=== PATIENT | female | born 1990 | race African-American/Black ===

== ENCOUNTER 2022-10-03 08:42 | Emergency (ER) | payer MEDICAID, SELFPAY ==
[2022-10-03 09:01] VITALS: BP 141/111; PULSE 88; RESP 18; TEMP 36.9; O2SAT 98; BMI 48.4
--- NOTE | 2022-10-03 09:25 | W.ED.GENADLT ---
HPI - General Adult General: Chief complaint: General Medical Stated complaint: low back pain, syncope, n/v Time Seen by Provider: 10/03/22 09:02 History of Present Illness: Patient is a 32-year-old female comes to the ED with multiple complaints. Her main complaint today is that she has bilateral lower back pain, but most of the back pain is on the left side. Back pain started approximately a week ago. She rates her back pain an 8 out of 10. Pain worsens with any movement of torso. Patient also reports having increased urinary frequency, dysuria and hematuria. She also reports having nausea and vomiting that she has been dealing with for the past 6 months. She states that certain foods make her symptoms worse. She has had 3 inconclusive test and says that her last menstrual period only lasted for 2 days. Patient also states that she lives off the grid in a cabin at home that does not have any AC or electricity. She states that she sweats a lot and feels like she cannot stay hydrated. She reports having multiple episodes of heat exhaustion in the last year and has had a couple this year. Patient does not have a primary care physician and has not seen anybody within the last 6 months since symptoms of nausea and vomiting with certain foods started. Associated symptoms: Deny chest pain, dyspnea, headache(s), nausea, rash, palpitations or vomiting Review of Systems Const: Denies: fever(s), chills or fatigue Eyes: Denies: change in vision or eye discomfort ENMT: Denies: throat pain, odynophagia, nasal discharge or nasal congestion Card: Denies: chest pain, palpitations, edema, swelling of feet/ankles, dyspnea on exertion or orthopnea Resp: Denies: dyspnea, productive cough or non-productive cough GI: Denies: abdominal pain, nausea, vomiting, diarrhea, constipation or hematochezia : Reports: dysuria, urinary frequency and hematuria; Denies: flank pain, vaginal bleeding or vaginal discharge Musc: Reports: back pain; Denies: neck pain or extremity swelling Skin/Breast: Denies: rash or new lesions Neuro: Denies: headache(s), numbness in extremities or weakness in extremities PFS ED PFSH: Medical History (Updated 10/03/22 @ 12:37 by ALBA Hall) No pertinent family history Surgical History (Updated 10/03/22 @ 09:31 by ALBA Hall) History of Physical Exam Const: COMMON NORMALS: no acute distress, patient oriented x3, healthy appearing and alert HENMT: COMMON NORMALS: normocephalic HEAD & SCALP: normocephalic MOUTH: Normal oral and palatal mucosa present THROAT: posterior oropharynx normal and uvula midline Neck/C-Spine: COMMON NORMALS: supple GENERAL: Yes normal visual inspection Resp: COMMON NORMALS: normal respiratory effort, No retractions, No use of accessory muscles and clear to auscultation bilaterally AUSCULTATION: clear to auscultation bilaterally Cardio: COMMON NORMALS: regular rate, regular rhythm, S1 normal heart sound present, S2 normal heart sound present, No gallops present (Cardio), No clicks present (Cardio), No murmurs present (Cardio) and Peripheral pulses 2+ throughout RATE: regular rate RHYTHM: regular rhythm HEART SOUNDS: S1 normal heart sound present and S2 normal heart sound present PERIPHERAL PULSES: Peripheral pulses 2+ throughout GI: COMMON NORMALS: Normal to inspection, nondistended, normoactive bowel sounds present, Soft to palpation, non-tender and no masses PALPATION: Yes Soft to palpation : BLADDER/KIDNEY EXAM: Yes CVA tenderness on the left Back/Pelvis: GENERAL BACK: Yes CVA tenderness LUMBAR SPINE/LOWER BACK: No lumbar spinal tenderness and Yes paraspinal muscle tenderness Lumbar paraspinal muscle tenderness: bilateral Bilateral lumbar paraspinal muscle tenderness: L4 and L5 Extremity: COMMON NORMALS: normal to inspection Neuro: COMMON NORMALS: patient oriented x3 SENSORIUM/ORIENTATION: Yes alert GAIT: Yes Normal gait present Skin: GENERAL SKIN EXAM: dry skin Course ED course: I told patient about lab results and her positive test. Patient got emotional and says they have been trying for 12 years to get again and even went to fertility specialists and they were unable to help them. Patient is happy about the use of being . Denies any vaginal bleeding. Vital Signs: Vital signs: Vital Signs Temperature 98.5 F 10/03/22 09:01 Pulse Rate 78 10/03/22 11:45 Respiratory Rate 16 10/03/22 11:45 Blood Pressure 106/88 10/03/22 11:45 Pulse Oximetry 98 10/03/22 11:45 Oxygen Delivery Me thod Room Air 10/03/22 09:01 MDM - General Adult Medical Decision Making Patient is a 32-year-old female comes to the ED with multiple complaints. Her main complaint today is that she has bilateral lower back pain, but most of the back pain is on the left side. Back pain started approximately a week ago. She rates her back pain an 8 out of 10. Pain worsens with any movement of torso. Patient also reports having increased urinary frequency, dysuria and hematuria. She also reports having nausea and vomiting that she has been dealing with for the past 6 months. She states that certain foods make her symptoms worse. She has had 3 inconclusive test and says that her last menstrual period only lasted for 2 days. Patient also states that she lives off the grid in a cabin at home that does not have any AC or electricity. She states that she sweats a lot and feels like she cannot stay hydrated. She reports having multiple episodes of heat exhaustion in the last year and has had a couple this year. Patient does not have a primary care physician and has not seen anybody within the last 6 months since symptoms of nausea and vomiting with certain foods started. Vitals are stable. Patient appears nontoxic and in no acute distress or pain. She has some left CVA tenderness and bilateral L4 and L5 lumbar paraspinal muscle tenderness. Rest of exam is benign. CBC, CMP, TSH are unremarkable. UA shows no signs of UTI, no white blood cells, red blood cells or bacteria. hCG was positive and hCG quant was 87,186. EKG showed no acute findings. OB ultrasound showed single intrauterine with a gestation of 11 weeks and 3 days and normal cardiac activity. Patient was given 1 L of IV fluids and all of her symptoms resolved. She was excited about currently being . She was stable for discharge home and told to follow-up with her OB as soon as possible to have her first OB appointment. Return to ED precautions given. Patient understood and agreed with plan. Lab Data I reviewed the patient's lab results. 10/03/22 09:12 10/03/22 09:12 Radiology Impressions Obstetrics Ultrasound 10/03/22 10:40 IMPRESSION: 1. Single intrauterine gestation of 11 weeks 3 days and EDC of 04/21/2023. 2. Normal cardiac activity. 3. No free fluid or adnexal masses. Laboratory Results WBC 7.5 10^3/uL (4.0-10.0) 10/03/22 09:12 RBC 4.88 10^6/uL (4.1-5.3) 10/03/22 09:12 Hgb 13.0 g/dL (11.5-15.3) 10/03/22 09:12 Hct 40.9 % (37.0-47.0) 10/03/22 09:12 MCV 83.8 fl (81-99) 10/03/22 09:12 MCH 26.6 pg (28.0-34.0) L 10/03/22 09:12 MCHC 31.8 g/dL (30.0-36.0) 10/03/22 09:12 RDW 14.5 % (12.1-15.1) 10/03/22 09:12 Plt Count 251 10^3/cmm (130-400) 10/03/22 09:12 MPV 10.5 fL (7.4-10.4) H 10/03/22 09:12 Neut % (Auto) 65.3 % 10/03/22 09:12 Lymph % (Auto) 24.3 % 10/03/22 09:12 [place] % (Auto) 6.4 % 10/03/22 09:12 Eos % (Auto) 3.4 % 10/03/22 09:12 Baso % (Auto) 0.3 % 10/03/22 09:12 Neut # (Auto) 4.87 10^3/uL (1.8-7.7) 10/03/22 09:12 Lymph # (Auto) 1.8 10^3/uL (0.8-4.8) 10/03/22 09:12 [place] # (Auto) 0.5 10^3/uL (0.2-0.9) 10/03/22 09:12 Eos # (Auto) 0.3 10^3/uL (0.0-0.8) 10/03/22 09:12 Baso # (Auto) 0.0 10^3/uL (0.0-0.1) 10/03/22 09:12 Nucleated RBC % (auto) 0 % 10/03/22 09:12 Nucleated RBCs # 0.0 /100WBC 10/03/22 09:12 Sodium 136 mmol/L (136-145) 10/03/22 09:12 Potassium 4.2 mmol/L (3.5-5.1) 10/03/22 09:12 Chloride 102 mmol/L (98-107) 10/03/22 09:12 Carbon Dioxide 22 mmol/L (22-29) 10/03/22 09:12 Anion Gap 16.2 (5-19) 10/03/22 09:12 BUN 6 mg/dL (6-20) 10/03/22 09:12 Creatinine 0.6 mg/dL (0.5-0.9) 10/03/22 09:12 GFR Calculation 140.2 mL/min (90-130) H 10/03/22 09:12 Glucose 98 mg/dL (65-115) 10/03/22 09:12 Calculated Osmolality 280 mOsm/kg (285-295) L 10/03/22 09:12 Calcium 9.6 mg/dL (8.5-10.5) 10/03/22 09:12 Total Bilirubin 0.3 mg/dL (0.15-1.2) 10/03/22 09:12 AST 11 U/L (0-32) 10/03/22 09:12 ALT 8 U/L (0-33) 10/03/22 09:12 Alkaline Phosphatase 72 U/L (35-105) 10/03/22 09:12 Total Protein 7.1 g/dL (6.6-8.7) 10/03/22 09:12 Albumin 4.2 g/dL (3.5-5.2) 10/03/22 09:12 Globulin 2.9 g/dL (1.3-4.6) 10/03/22 09:12 TSH 1.58 uIU/mL (0.27-4.20) 10/03/22 09:12 HCG, Qual Positive (Negative) H 10/03/22 09:12 Ser , Semi-Qnt 13343.00 mIU/mL 10/03/22 09:12 Urine Color Yellow (Yellow) 10/03/22 12:04 Urine Appearance Clear (CLEAR) 10/03/22 12:04 Urine pH 7 (5-7) 10/03/22 12:04 Ur Specific [place] 1.010 (1.005-1.030) 10/03/22 12:04 Urine Protein Neg (Negative) 10/03/22 12:04 Urine Glucose (UA) Norm (Normal) 10/03/22 12:04 Urine Ketones 1+ (Negative) H 10/03/22 12:04 Urine Blood Neg (Negative) 10/03/22 12:04 Urine Nitrate Negative (Negative) 10/03/22 12:04 Urine Bilirubin Neg (Negative) 10/03/22 12:04 Urine Urobilinogen Norm mg/dL (Negative) 10/03/22 12:04 Ur Leukocyte Esterase Negative (Negative) 10/03/22 12:04 EKG Data EKG 1: EKG interpretation date: 10/03/22 Interpretation: Sinus rhythm, 72 bpm, no ST segment elevation or depression seen. Computer generated interpretation: Obstetrics Ultrasound 10/03/22 10:40 IMPRESSION: 1. Single intrauterine gestation of 11 weeks 3 days and EDC of 04/21/2023. 2. Normal cardiac activity. 3. No free fluid or adnexal masses. Discharge Plan Discharge Patient Disposition: Home Clinical Impression: Currently Qualifiers: Weeks of gestation: 11 weeks Qualified Code(s): Z3A.11 - 11 weeks gestation of Condition: Stable Prescriptions: New Reglan 10 mg tablet 10 mg PO Q6H PRN (Reason: nausea and vomiting) Qty: 20 0RF No Action Jt Back and Body 500-32.5 mg Tablet 2 tab PO EVERY OTHER DAY PRN (Reason: Pain) Discharge Orders: Discharge ED (Routine); Ordered 10/03/22 Ordered By: Mikhail Garcia Discharge Diet: Regular Discharge Activity: Increase activity as tolerated Patient Instructions: at 11 to 14 Weeks (ED) Activity Restrictions/Additional Instructions: Follow-up with medical provider as directed in the next 7 to 10 days for reevaluation. Make sure you drink plenty fluids and stay hydrated. Take medications as prescribed. Return to the ER or your medical provider if condition worsens. Please read and understand discharge instructions. Thank you for choosing [facility] for your healthcare needs today. Please realize this is an emergency room and that we are providing you with a medical screening exam and this may not be complete and all inclusive of all the testing and or work up that you may need to determine your ailment or severity of your illness. It is very important that you follow up as instructed or that you return to the Emergency Department should you have concerns or if your condition changes or worsens in any way. Coding Level of Care Code ED Sales Clerk Supervisor for Keshia Patel
[2022-10-03 09:34] LABS: Basophils % 0.3 %; Eosinophils # 0.3 10^3/uL (0.0-0.8); Eosinophils % 3.4 %; Hematocrit 40.9 % (37.0-47.0); Lymphocytes # 1.8 10^3/uL (0.8-4.8); Lymphocytes % 24.3 %; Mean Corpuscular HGB Conc 31.8 g/dL (30.0-36.0); Mean Corpuscular Hemoglobin 26.6 pg (28.0-34.0); Mean Corpuscular Volume 83.8 fl (81-99); Mean Platelet Volume 10.5 fL (7.4-10.4); Monocytes # 0.5 10^3/uL (0.2-0.9); Monocytes % 6.4 %; Neutrophils # 4.87 10^3/uL (1.8-7.7); Neutrophils % 65.3 %; Nucleated Red Blood Cells % 0 %; Platelet Count 251 10^3/cmm (130-400); Red Blood Count 4.88 10^6/uL (4.1-5.3); Red Cell Distribution Width 14.5 % (12.1-15.1); White Blood Count 7.5 10^3/uL (4.0-10.0)
--- NOTE | 2022-10-03 09:34 | ECG_ITS ---
[facility] Test Date: 2022-10-03 Pat Name: Flor Ochoa Department: Room: Gender: Female Adjunct Business Instructor: : 1990 Requested By: Mikhail Garcia Order Number: [id number] Helder MD: Mo Hope M.D. Measurements Intervals [place] Rate: 72 P: 31 MN: 144 QRS: 73 QRSD: 89 T: 48 QT: 381 QTc: 418 Interpretive Statements SINUS RHYTHM WITH SINUS ARRHYTHMIA No previous ECG available for comparison Electronically Signed On 10-03-2022 11:42:20 CDT by Mo Hope M.D. [id number]
[2022-10-03 09:40] LABS: HCG, Serum Qual Positive (Negative)
--- NOTE | 2022-10-03 09:41 | PC.PHAR ---
pt states she is suppose to be taking bp meds and inhalers but states she never took them states that was years ago they were prescribed pt states she doesnt like to take medications-
[2022-10-03] MEDS: sodium chloride 0.9% 1,000 ML 999 ML IV (09:57)
[2022-10-03 10:04] LABS: Alanine Aminotransferase 8 U/L (0-33); Albumin Level 4.2 g/dL (3.5-5.2); Alkaline Phosphatase 72 U/L (35-105); Anion Gap 16.2 (5-19); Aspartate Amino Transferase 11 U/L (0-32); Blood Urea Nitrogen 6 mg/dL (6-20); Calcium 9.6 mg/dL (8.5-10.5); Carbon Dioxide 22 mmol/L (22-29); Chloride 102 mmol/L (98-107); Globulin 2.9 g/dL (1.3-4.6); Glomerular Filtration Rate 140.2 mL/min (90-130); Glucose 98 mg/dL (65-115); Osmolality Calculated 280 mOsm/kg (285-295); Potassium 4.2 mmol/L (3.5-5.1); Sodium 136 mmol/L (136-145); Thyroid Stimulating Hormone 1.58 uIU/mL (0.27-4.20); Total Bilirubin 0.3 mg/dL (0.15-1.2); Total Protein 7.1 g/dL (6.6-8.7)
--- NOTE | 2022-10-03 10:40 | US_ITS ---
WS: [id number] EARLY OBSTETRICAL ULTRASOUND (<14 WEEKS). HISTORY: unknown gestation, abd cramping, no bleeding COMPARISON: None available. Single intrauterine gestational sac is identified. Cardiac activity at 157 BPM. Mcbride-rump length dayana sures 4.6 cm which corresponds to a gestation of 11w3d. Normal-appearing yolk sac and amnion demonstr ated. No subchorionic hemorrhage. No free fluid. Normal size ovaries with no mass. US/US OB limited [id number] IMPRESSION: 1. Single intrauterine gestation of 11 weeks 3 days and EDC of 04/21/2023. 2. Normal cardiac activity. 3. No free fluid or adnexal masses.
[2022-10-03 11:45] VITALS: BP 106/88; PULSE 78; RESP 16; O2SAT 98
[2022-10-03 12:08] LABS: Add Urine Microscopic? NO; Charge for UA Resulting for Rev
[2022-10-03 12:28] LABS: Blood Urine Neg (Negative); Glucose Urine UA Norm (Normal); Ketones Urine 1+ (Negative); Nitrate Urine Negative (Negative); Protein Urine Neg (Negative); Urine Appearance Clear (CLEAR); Urine Color Yellow (Yellow); pH Urine 7 (5-7)
[2022-10-03 12:29] LABS: Bilirubin Urine Neg (Negative); Leukocyte Esterase Urine Negative (Negative); Urobilinogen Urine Norm (Negative)
== END 2022-10-03 12:54 | disposition home or self-care (01) ==
PROVIDERS: Emergency Provider Physician Assistant
DX: O26.891 Other specified pregnancy related conditions, first trimester (principal); M54.50 Low back pain, unspecified; Z3A.11 11 weeks gestation of pregnancy
CPT/HCPCS: 76815; 80053; 81003; 84443; 84702; 84703; 85025; 93005; 96360; 96361; 99285; J7030

== ENCOUNTER 2022-11-20 10:02 | Emergency (ER) | payer BC, MEDICAID, SELFPAY ==
[2022-11-20 10:13] VITALS: BP 134/72; PULSE 103; RESP 16; TEMP 36.6; O2SAT 97; BMI 52.0
--- NOTE | 2022-11-20 10:51 | US_ITS ---
WS: [id number] ULTRASOUND ABDOMEN LIMITED CLINICAL INFORMATION: periumbilical pain suspicious for hernia COMPARISON: None. FINDINGS: Ultrasound area of concern near the umbilicus. Small fat-containing umbilical hernia with omentum. No visualized herniated or obstructed bowel. No free fluid. IMPRESSION: Small fat-containing umbilical hernia with omentum. No visualized herniated or obstructed bowel.
--- NOTE | 2022-11-20 10:51 | US_ITS ---
WS: [id number] EARLY OBSTETRICAL ULTRASOUND (<14 WEEKS). HISTORY: 18 weeks gestation lack of mvmt and pelvic cramping COMPARISON: 10/03/2022 Very limited evaluation of the intrauterine gestation. heart rate at 160 bpm. There is a normal amount of amniotic fluid. Placenta is anterior to fund al. No abruption is identified. Cervix is closed measuring 5.1 cm in length. Gestational age estimate d at 18 weeks and 6 days. IMPRESSION: 1. Normal cardiac activity. 2. Normal amniotic fluid. 3. No placental abruption identified
[2022-11-20 11:09] LABS: Basophils % 0.2 %; Eosinophils # 0.2 10^3/uL (0.0-0.8); Eosinophils % 2.6 %; Hematocrit 39.1 % (36-47); Lymphocytes % 22.4 %; Mean Corpuscular Hemoglobin 27.3 pg (27-33); Mean Corpuscular Volume 82.8 fl (85-98); Mean Platelet Volume 10.5 fL (7.4-10.4); Monocytes # 0.6 10^3/uL (0.2-0.9); Monocytes % 6.6 %; Neutrophils % 68.1 %; Nucleated Red Blood Cells % 0 %; Platelet Count 254 10^3/cmm (157-399); Red Blood Count 4.72 10^6/uL (3.85-5.65); Red Cell Distribution Width 14.3 % (12.1-15.1); White Blood Count 8.96 10^3/uL (3.29-11.43)
[2022-11-20 11:30] LABS: Alanine Aminotransferase 12 U/L (0-33); Albumin Level 3.8 g/dL (3.5-5.2); Alkaline Phosphatase 59 U/L (35-105); Anion Gap 13.1 (5-19); Aspartate Amino Transferase 16 U/L (0-32); Blood Urea Nitrogen 7 mg/dL (6-20); Calcium 9.1 mg/dL (8.5-10.5); Carbon Dioxide 24 mmol/L (22-29); Chloride 101 mmol/L (98-107); Globulin 3.5 g/dL (1.3-4.6); Glucose 120 mg/dL (65-115); Lipase 29 U/L (13-60); Osmolality Calculated 277 mOsm/kg (285-295); Potassium 4.1 mmol/L (3.5-5.1); Sodium 134 mmol/L (136-145); Total Bilirubin 0.3 mg/dL (0.15-1.2); Total Protein 7.3 g/dL (6.6-8.7)
--- NOTE | 2022-11-20 13:01 | ED_ITS ---
HPI - Abdominal Pain General: Chief Complaint: Abdominal Pain Stated Complaint: 18 wks preg/abd pain Time Seen by Provider: 11/20/22 10:19 History of Present Illness: Patient is in today for abdominal pain. She reports that she is 18 weeks . She reports that she has a hernia around her bellybutton and also down by her previous scar that is very painful to her. She reports that she has tried 12 years to get this baby and now she is very nervous that the growing baby is causing the hernias to worsen. She relates that she had a very traumatic and delivery with her first child. She reports that she was on bedrest from 19 weeks until 9 months . She reports that her first child had a stroke in utero and 2 strokes postdelivery with significant complications. She states that she has not felt movement with this baby in the past 2 days where she had been feeling routinely. She denies any fever, chills. She states that she has had significant/extreme nausea and vomiting with this and has really struggled to stay hydrated. She states that for the past 2 days she has had extreme abdominal pain and now feeling uterine c ramping. She denies any vaginal bleeding or discharge. Associated Symptoms: Reports nausea and vomiting; Denies chills, constipation, diarrhea, dysuria and fever(s) Review of Systems Const: Denies: fever(s) or chills Card: Denies: chest pain or palpitations Resp: Denies: dyspnea, productive cough or non-productive cough GI: Reports: abdominal pain, nausea and vomiting; Denies: diarrhea or constipation : Denies: flank pain, difficulty voiding, dysuria or urinary urgency [facility] ED PFSH: Medical History No pertinent family history Surgical History History of Physical Exam Const: COMMON NORMALS: no acute distress, patient oriented x3 and alert Neck/C-Spine: COMMON NORMALS: no JVD Resp: COMMON NORMALS: normal respiratory effort, No use of accessory muscles and clear to auscultation bilaterally AUSCULTATION: clear to auscultation bilaterally Cardio: COMMON NORMALS: no JVD, regular rate, regular rhythm, S1 normal heart sound present and S2 normal heart sound present RATE: regular rate RHYTHM: regular rhythm HEART SOUNDS: S1 normal heart sound present and S2 normal heart sound present GI: COMMON NORMALS: Soft to palpation INSPECTION: Yes central obesity AUSCULTATION: Yes normoactive bowel sounds PALPATION: Yes Soft to palpation and Yes Tenderness to palpation present (GI) Details: LLQ, LUQ and other (Suprapubic and periumbilical) : COMMON NORMALS: Yes no CVA tenderness BLADDER/KIDNEY EXAM: Yes no CVA t enderness Back/Pelvis: COMMON NORMALS: no CVA tenderness Neuro: COMMON NORMALS: patient oriented x3 SENSORIUM/ORIENTATION: Yes alert Course Vital Signs: Vital signs: Vital Signs Temperature 97.8 F 11/20/22 10:13 Pulse Rate 103 H 11/20/22 10:13 Respiratory Rate 16 11/20/22 10:13 Blood Pressure 134/72 11/20/22 10:13 Pulse Oximetry 97 11/20/22 10:13 Oxygen Delivery Me thod Room Air 11/20/22 10:13 MDM - Abdominal Pain Medical Decision Making Consider renal stone, N[place] Perez, threatened , hernia, urinary tract infection Labs do not show any significant elevation in white blood cell count to indicate infection. Patient was unable to urinate and did not want to leave a urine sample at this time stating that she does not have any urinary symptoms and she is feeling better now that she had the ultrasound. Patient's biggest concern was the hernia and the fact that she had not felt movement. Ultrasound showed fetus measuring 18 weeks 6 days with normal cardiac activity and Hall Perez contractions. Ultrasound abdomen shows fat-containing umbilical hernia without strangulation. Advised the patient that I will discharge her to home to keep her follow-up with POACHER WRINGER OPERATOR next week as already scheduled. She can discuss the hernia and with POACHER WRINGER OPERATOR at that time. Encouraged the patient to stay well-hydrated and rest. Gave her a small refill of the metoclop ramide as patient reports that the only way she is able to keep fluids down. Advised her to return to the ER as needed for any new or worsening symptoms. Lab Data 11/20/22 11:00 11/20/22 11:00 Labs/Radiology: Laboratory Results WBC 8.96 10^3/uL (3.29-11.43) 11/20/22 11:00 RBC 4.72 10^6/uL (3.85-5.65) 11/20/22 11:00 Hgb 12.90 g/dL (11.27-16.99) 11/20/22 11:00 Hct 39.1 % (36-47) 11/20/22 11:00 MCV 82.8 fl (85-98) L 11/20/22 11:00 MCH 27.3 pg (27-33) 11/20/22 11:00 MCHC 33.0 g/dL (30-55) 11/20/22 11:00 RDW 14.3 % (12.1-15.1) 11/20/22 11:00 Plt Count 254 10^3/cmm (157-399) 11/20/22 11:00 MPV 10.5 fL (7.4-10.4) H 11/20/22 11:00 Neut % (Auto) 68.1 % 11/20/22 11:00 Lymph % (Auto) 22.4 % 11/20/22 11:00 [place] % (Auto) 6.6 % 11/20/22 11:00 Eos % (Auto) 2.6 % 11/20/22 11:00 Baso % (Auto) 0.2 % 11/20/22 11:00 Neut # (Auto) 6.10 10^3/uL (1.8-7.7) 11/20/22 11:00 Lymph # (Auto) 2.0 10^3/uL (0.8-4.8) 11/20/22 11:00 [place] # (Auto) 0.6 10^3/uL (0.2-0.9) 11/20/22 11:00 Eos # (Auto) 0.2 10^3/uL (0.0-0.8) 11/20/22 11:00 Baso # (Auto) 0.0 10^3/uL (0.0-0.1) 11/20/22 11:00 Nucleated RBC % (auto) 0 % 11/20/22 11:00 Nucleated RBCs # 0.0 /100WBC 11/20/22 11:00 Sodium 134 mmol/L (136-145) L 11/20/22 11:00 Potassium 4.1 mmol/L (3.5-5.1) 11/20/22 11:00 Chloride 101 mmol/L (98-107) 11/20/22 11:00 Carbon Dioxide 24 mmol/L (22-29) 11/20/22 11:00 Anion Gap 13.1 (5-19) 11/20/22 11:00 BUN 7 mg/dL (6-20) 11/20/22 11:00 Creatinine 0.5 mg/dL (0.5-0.9) 11/20/22 11:00 GFR Calculation 173.0 mL/min (90-130) H 11/20/22 11:00 Glucose 120 mg/dL (65-115) H 11/20/22 11:00 Calculated Osmolality 277 mOsm/kg (285-295) L 11/20/22 11:00 Calcium 9.1 mg/dL (8.5-10.5) 11/20/22 11:00 Total Bilirubin 0.3 mg/dL (0.15-1.2) 11/20/22 11:00 AST 16 U/L (0-32) 11/20/22 11:00 ALT 12 U/L (0-33) 11/20/22 11:00 Alkaline Phosphatase 59 U/L (35-105) 11/20/22 11:00 Total Protein 7.3 g/dL (6.6-8.7) 11/20/22 11:00 Albumin 3.8 g/dL (3.5-5.2) 11/20/22 11:00 Globulin 3.5 g/dL (1.3-4.6) 11/20/22 11:00 Lipase 29 U/L (13-60) 11/20/22 11:00 Discharge Plan Discharge Patient Disposition: Home Clinical Impression: Hernia, Hall Perez' contraction Condition: Stable Prescriptions: New Reglan 10 mg tablet 10 mg PO Q8H PRN (Reason: nausea and vomiting) Qty: 15 0RF Discharge Orders: Discharge ED (Routine); Ordered 11/20/22 Ordered By: Yesica Long Referrals: Werner Corona MD [Primary Care Provider] - Discharge Diet: Usual diet Activity Restrictions/Additional Instructions: Be sure to rest and stay well-hydrated. Reglan as needed for nausea and vomit ing. Keep your OB appointment next Wednesday. Follow-up in ER for any new or worsening symptoms Coding Level of Care Code ED Acid Conditioning Worker for Keshia Patel
[2022-11-20 13:15] VITALS: PULSE 90; RESP 15; O2SAT 96
== END 2022-11-20 13:19 | disposition home or self-care (01) ==
PROVIDERS: Emergency Provider Nurse Practitioner Family; PCP Family Medicine
DX: O26.892 Other specified pregnancy related conditions, second trimester (principal); K42.9 Umbilical hernia without obstruction or gangrene; O47.02 False labor before 37 completed weeks of gestation, second trimester; Z3A.18 18 weeks gestation of pregnancy
CPT/HCPCS: 76705; 76815; 80053; 83690; 85025; 99284; E0352

== ENCOUNTER 2023-03-23 11:05 | Inpatient (IN) | payer BC, MEDICAID, SELFPAY ==
[2023-03-23] VITALS (132 sets, daily range): BP systolic 103–163; BP diastolic 55–111; PULSE 55–134; RESP 16–18; TEMP 36.3–36.6; O2SAT 88–98; BMI 53.1
--- NOTE | 2023-03-23 09:23 | USR_ITS ---
PROCEDURE INFORMATION: Exam: US Biophysical Profile Without Non-Stress Test Exam date and time: 03/23/2023 9:40 AM Age: 32 years old Clinical indication: Other: Decreased movement; TECHNIQUE: Imaging protocol: US biophysical profile without non-stress testing. COMPARISON: US OB >= 14 weeks fetus [id number] 12/11/2022 11:00 AM FINDINGS: There is a single live intrauterine gestation in the vertex presentation with an anterior placenta without evidence for previa or abruption. heart rate measures 141 bpm. Amniotic fluid index: Amniotic fluid index measures 2.8 cm, with a single pocket identified. BIOPHYSICAL PROFILE: breathing movement (BPP): 0 out of 2. body movement (BPP): 2 out of 2. tone (BPP): 2 out of 2. Amniotic fluid (BPP): 2 out of 2. MATERNAL ANATOMY: Cervix: The cervix measures 5.3 cm. US/US OB BPP wo NST [id number] IMPRESSION: Biophysical profile measures 6/8 with 0 points assigned for breathing. Oligohydramnios.
[2023-03-23 10:00] LABS: Basophils % 0.2 %; Eosinophils # 0.1 10^3/uL (0.0-0.8); Hematocrit 36.9 % (36-47); Lymphocytes # 1.9 10^3/uL (0.8-4.8); Lymphocytes % 17.3 %; Mean Corpuscular HGB Conc 32.8 g/dL (30-55); Mean Corpuscular Hemoglobin 27.3 pg (27-33); Mean Corpuscular Volume 83.3 fl (85-98); Monocytes # 0.6 10^3/uL (0.2-0.9); Monocytes % 5.6 %; Neutrophils # 8.18 10^3/uL (1.8-7.7); Neutrophils % 75.5 %; Nucleated Red Blood Cells % 0 %; Platelet Count 242 10^3/cmm (157-399); Red Blood Count 4.43 10^6/uL (3.85-5.65); Red Cell Distribution Width 13.9 % (12.1-15.1); White Blood Count 10.84 10^3/uL (3.29-11.43)
[2023-03-23 10:05] LABS: Urine Creatinine 107 mg/dL (28-217)
[2023-03-23 10:07] LABS: Add Urine Microscopic? YES; Bilirubin Urine Neg (Negative); Blood Urine 2+ (Negative); Glucose Urine UA Norm (Normal); Ketones Urine Negative (Negative); Leukocyte Esterase Urine 2+ (Negative); Nitrate Urine Negative (Negative); Protein Urine Neg (Negative); Specific Gravity, Urine 1.005 (1.005-1.030); Squamous Epithelial Cell Urine 0-4 /hpf (0-5); UPRO/UCREAT Ratio 0.31 mg/mg CR; Urine Appearance Clear (CLEAR); Urine Color Yellow (Yellow); Urine Protein Random 33 mg/dL; Urobilinogen Urine Norm (Negative); WBC Urine 25-40 /hpf (0-5); pH Urine 7 (5-7)
[2023-03-23 10:08] LABS: Add Urine Culture? Yes; Bacteria Urine TRACE /hpf
[2023-03-23 10:29] LABS: Alanine Aminotransferase 27 U/L (0-33); Albumin Level 3.1 g/dL (3.5-5.2); Alkaline Phosphatase 134 U/L (35-105); Blood Urea Nitrogen 8 mg/dL (6-20); Calcium 9.2 mg/dL (8.5-10.5); Carbon Dioxide 23 mmol/L (22-29); Chloride 103 mmol/L (98-107); Globulin 3.4 g/dL (1.3-4.6); Glomerular Filtration Rate 140.2 mL/min (90-130); Glucose 88 mg/dL (65-115); Osmolality Calculated 278 mOsm/kg (285-295); Sodium 135 mmol/L (136-145); Total Bilirubin 0.2 mg/dL (0.15-1.2); Total Protein 6.5 g/dL (6.6-8.7); Uric Acid 4.9 mg/dL (2.4-5.7)
[2023-03-23 10:31] LABS: Anion Gap 13.2 (5-19); Aspartate Amino Transferase 31 U/L (0-32); Potassium 4.2 mmol/L (3.5-5.1)
[2023-03-23 11:02] LABS: Actim Prom Positive
[2023-03-23] MEDS: lactated ringers 1,000 ML 999 ML IV ×2 (11:34→12:44)
--- NOTE | 2023-03-23 12:14 | P.HP_ITS ---
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 Patient's blood pressures were in the hypertensive range but not severe. Patient was complaining of headache and blurred vision. Patient also reports that she had not ate this morning and had not felt the baby move. heart tones initially were reassuring with good accelerations. Patient was given some clear liquids but no significant movement was still detected. Lab work was unremarkable except for an elevated urine protein creatinine ratio of 0.3. Biophysical profile showed no breathing but more concerning was a low JAMAL of 2.4. Patient admits that she has had leakage for the last 2 weeks. Present Details : 2 Para: 1 Labs Rubella: Immune RPR: Negative GBS: Unknown Specific History Indications for Section: Preeclampsia and Repeat Review of Systems 2 Const: Denies: fever(s) or chills Card: Denies: chest pain or palpitations Resp: Denies: dyspnea, productive cough or non-productive cough GI: Reports: abdominal pain, nausea and vomiting; Denies: diarrhea or constipation : Denies: flank pain, difficulty voiding, dysuria or urinary urgency Medications/Allergies Home Medications Medication Instructions Recorded Confirmed Last Taken Type metoclopramide HCl 10 mg tablet 10 mg PO Q8H PRN nausea and 11/20/22 Unknown Rx (Reglan) vomiting #15 tabs Allergies Allergy/AdvReac Type Severity Reaction Status Date / Time Penicillins Allergy Unknown Verified 10/03/22 09:41 shellfish derived Allergy ALGY-Anaphy Verified 10/03/22 09:41 laxis PFSH 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 2 PFSH: Medical History No pertinent family history Surgical History History of Vitals/I&O/Wt Last Vital Signs Pulse 90 03/23/23 12:02 Resp 18 03/23/23 11:05 BP 140/92 03/23/23 12:02 O2 Del Method Room Air 03/23/23 11:29 Weight last 48 hrs Weight 140.614 kg Physical Exam 2 Const: COMMON NORMALS: no acute distress, healthy appearing and alert HENMT: COMMON NORMALS: normocephalic and moist oral mucous membranes Eye: COMMON NORMALS: Equal, round and reactive pupils present, EOMs intact bilaterally and conjunctivae normal Neck/C-Spine: COMMON NORMALS: full ROM and supple Resp: COMMON NORMALS: normal respiratory effort Cardio: COMMON NORMALS: no JVD, regular rate and regular rhythm GI: OTHER: GRAVID Extremity: COMMON NORMALS: no clubbing, cyanosis or edema Neuro: COMMON NORMALS: patient oriented x3, moves all extremities and no focal motor deficits Psych: COMMON NORMALS: mental status grossly normal Data 03/23/23 09:35 03/23/23 09:35 Results Labs OB ([facility]): 2 Obstetrics US 11/20/22 Obstetrics US/Biophysical Profile Blood Type Pending 03/23/23 Antibody Screen Pending 03/23/23 Hct 36.9 % (36-47) 03/23/23 Hgb 12.10 g/dL (11.27-16.99) 03/23/23 Rho(D) Type Pending 03/23/23 Plt Count 242 10^3/cmm (157-399) 03/23/23 TSH 1.58 uIU/mL (0.27-4.20) 10/03/22 Uric Acid 4.9 mg/dL (2.4-5.7) 03/23/23 Ser , Semi-Qnt 26623.00 mIU/mL 10/03/22 HCG, Qual Positive (Negative) H 10/03/22 Micro Urine Specimen 03/23/23 A&P Assessment and plan (1) Preeclampsia: Proceed with repeat . Continue to monitor blood pressure. If severe elevations are noted then likely will need to start mag. (2) Obesity affecting in third trimester: (3) 35 weeks gestation of : We will have peds attend delivery. (4) premature rupture of membranes (PPROM) with onset of labor after 24 hours of rupture in third trimester, antepartum: (5) Oligohydramnios in third trimester: Attestations 2 Medical Necessity Statement*: Patient will be admitted for preeclampsia, oligohydraminos, and premature rupture membranes. Anticipate greater than 2 midnight stay. Coding Level of Care Code Acute Code for Chg Fwd Diagnoses Preeclampsia O14.90 Obesity affecting in third trimester O99.213 35 weeks gestation of Z3A.35 premature rupture of membranes (PPROM) with onset of labor after 24 hours of rupture in third trimester, antepartum O42.113 Oligohydramnios in third trimester O41.03X0
--- NOTE | 2023-03-23 13:37 | ANES.PREANE2 ---
Pre-Anesthetic Assessment Height/Weight: Height 1.63 m Weight 140.614 kg Pulse Resp BP O2 Del Method 83 18 139/75 Room Air 03/23/23 13:32 03/23/23 11:05 03/23/23 13:32 03/23/23 11:29 Familial anesthetic complications: none Was Beta [place] taken within 24 hours: N/A Was Clonidine taken within 24 hours: N/A Last intake: Intake Last Liquid Date 03/23/23 Last Liquid Time 10:30 Last Solid Date 03/22/23 Last Solid Time 20:30 Social No alcohol and No tobacco Exam alert, oriented x 3, clear to auscultation bilaterally and regular rate & rhythm Airway Submandibular: within normal limits Cervical ROM: within normal limits Mallampati: Class III Dentition: full History/ROS No significant history except as noted and No significant complaints Pulmonary Sleep Apnea Allergies CV/HEM Hypertension Urinary Tract Infection Hepatic None reported GI Gastroesophageal Reflux Disease and Hiatal Hernia Metabolic Morbid Obesity [facility] [place] None reported Neuropsych Anxiety, Depression and Seizure (2009, none since) Anesthetic Plan ASA status: 3 Anesthesia: Anesthesia Evaluation, General and Regional (specify below) Risk of > 500 ml blood loss (7ml/kg in children): Yes, adequate IV access and fluids planned Medications/Allergies Home Medications Medication Instructions Recorded Confirmed Last Taken Type metoclopramide HCl 10 mg tablet 10 mg PO Q8H PRN nausea and 11/20/22 Unknown Rx (Reglan) vomiting #15 tabs Allergies Allergy/AdvReac Type Severity Reaction Status Date / Time Penicillins Allergy Unknown Verified 10/03/22 09:41 shellfish derived Allergy ALGY-Anaphy Verified 10/03/22 09:41 laxis Current Medications Generic Name Dose Route Start Last Admin Trade Name Freq PRN Reason Stop Dose Admin Lactated Ringer's 1,000 mls @ 125 mls/hr 03/23/23 11:15 03/23/23 12:44 Lactated Ringers IV 999 mls/hr .Q8H BENJI Administration Lactated Ringer's 1,000 mls @ 999 mls/hr 03/23/23 11:04 03/23/23 11:34 Lactated Ringers IV 999 mls/hr .Q1H1M PRN Administration BLEEDING PFSH Anesthesia Medical History No pertinent family history Surgical History History of Female Reproductive History : 2 Data Anesthesia 03/23/23 09:35 03/23/23 09:35 Short CBC 03/23/23 Range/Units 09:35 WBC 10.84 (3.29-11.43) 10^3/uL Hgb 12.10 (11.27-16.99) g/dL Hct 36.9 (36-47) % MCV 83.3 L (85-98) fl Plt Count 242 (157-399) 10^3/cmm Neut % (Auto) 75.5 % Neut # (Auto) 8.18 H (1.8-7.7) 10^3/uL BMP 03/23/23 09:35 Sodium 135 L Potassium 4.2 Chloride 103 Carbon Dioxide 23 BUN 8 Creatinine 0.6 Glucose 88 Calcium 9.2 Liver Function 03/23/23 Range/Units 09:35 Total Bilirubin 0.2 (0.15-1.2) mg/dL AST 31 (0-32) U/L ALT 27 (0-33) U/L Alkaline Phosphatase 134 H (35-105) U/L Albumin 3.1 L (3.5-5.2) g/dL Urine 03/23/23 Range/Units 09:25 Urine Color Yellow (Yellow) Urine Appearance Clear (CLEAR) Urine pH 7 (5-7) Ur Specific [place] 1.005 (1.005-1.030) Urine Protein Neg (Negative) Urine Glucose (UA) Norm (Normal) Urine Ketones Negative (Negative) Urine Nitrate Negative (Negative) Urine Bilirubin Neg (Negative) Ur Leukocyte Esterase 2+ H (Negative) Urine RBC 5-10 H (0-2) /hpf Urine WBC 25-40 H (0-5) /hpf Blood Bank 03/23/23 09:35 Blood Type A Positive Rho(D) Type Rh positive Antibody Screen Negative Cardiac Studies: No Data to Display
[2023-03-23] MEDS: metoclopramide 5 mg/mL SDV 2 mL 10 MG IVP (13:40)
[2023-03-23] MEDS: citric acid-sodium citrate 30 mL UDC PO (13:40)
[2023-03-23] MEDS: famotidine 20 mg/2 mL INJ IVP (13:41)
[2023-03-23] MEDS: ceFAZolin 2,000 MG in sodium chloride 0.9% (plus) 50 ML 100 MG IV (13:41)
--- NOTE | 2023-03-23 15:34 | P.OP_ITS ---
Operative Report Date of procedure: March 23, 2023 Pre-op diagnosis: Premature premature rupture of membranes Preeclampsia Oligohydramnios Post-op diagnosis: Same, viable infant female Procedure done: Repeat low transverse Surgeon: Werner Corona MD Central Processing Technician: Dr. Petros DO Estimated blood loss: 800cc Complications: None Brief History: This is a 32-year-old G3, P2 that presented at 35 weeks 6 days with elevated blood pressure and decreased movement. Patient was found to have oligohydramnios and history was suggestive of premature rupture membranes. Patient was diagnosed with preeclampsia and delivery was warranted. Procedure: Patient was taken to the operating room where epidural anesthesia was found to be adequate. She was prepped and draped in the normal sterile fashion in a dorsal supine position with a leftward tilt. Skin incision was made with scalpel and carried out to the underlying layer of fascia which was incised in the midline. Fascial incision was then extended laterally with Brennan scissors bilaterally. The superior aspect of the fascial incision was grasped with Neo clamps elevated and dissected off the rectus muscles with Brennan's. The inferior aspect of the fascial incision was grasped with Yevgeniy's and in likewise manner was elevated and dissected off with Brennan's. Peritoneum was then entered digitally and extended with good visualization of the bladder. Bladder blade was then inserted. Uterine incision was then created in a transverse fashion in the lower uterine segment with scalpel and extended digitally. Amniotic sac was a round with Allis clamp. Clear fluid noted. Infant's head was delivered atraumatically nose and mouth suctioned with bulb, cord clamped and cut and handed off to waiting nursing staff. The placenta was then expressed and uterus exteriorized from the abdomen And cleared of all clots and debris. Uterine incision was then repaired in a running locked fashion with 0 Vicryl. Excellent hemostasis was noted. Uterus was then returned to the abdomen, gutters were cleared of all clots and debris. Peritoneum was then closed in a running fashion with 3-0 Vicryl. Fascia was then closed with 0 Vicryl in a running fashion. Subcutaneous tissue was closed with 3-0 Vicryl and skin was closed with 4-0 Monocryl on a Blayne needle. The incision was reinforced with Steri-Strips and pressure bandage was over the wound. Sponge, laps, and needle count was correct x2. 2 g Ancef was given prior to the procedure. Patient was taken recovery in stable condition.
[2023-03-23] MEDS: sodium chloride 0.9% 500 ML 999 ML IV ×2 (19:39→22:59)
[2023-03-23] MEDS: dextrose 5%-lactated ringers 1,000 ML 125 ML IV (20:26)
[2023-03-23] MEDS: ketorolac 30 mg/mL INJ IVP (21:03)
[2023-03-23] MEDS: ondansetron 2 mg/ML SDV 2 mL 4 MG IVP (22:28)
[2023-03-24] VITALS (10 sets, daily range): BP systolic 110–141; BP diastolic 66–97; PULSE 68–122; RESP 16; TEMP 36.8
[2023-03-24] MEDS: ketorolac 30 mg/mL INJ IVP ×2 (02:41→10:15)
[2023-03-24 02:52] LABS: Hematocrit 32.5 % (36-47); Mean Corpuscular HGB Conc 32.6 g/dL (30-55); Mean Corpuscular Hemoglobin 27.2 pg (27-33); Mean Corpuscular Volume 83.3 fl (85-98); Mean Platelet Volume 10.9 fL (7.4-10.4); Platelet Count 188 10^3/cmm (157-399); Red Cell Distribution Width 13.9 % (12.1-15.1); White Blood Count 12.57 10^3/uL (3.29-11.43)
[2023-03-24 03:10] LABS: Anion Gap 12.2 (5-19); Blood Urea Nitrogen 11 mg/dL (6-20); Calcium 8.9 mg/dL (8.5-10.5); Carbon Dioxide 23 mmol/L (22-29); Chloride 106 mmol/L (98-107); Glomerular Filtration Rate 117.3 mL/min (90-130); Glucose 104 mg/dL (65-115); Osmolality Calculated 284 mOsm/kg (285-295); Potassium 4.2 mmol/L (3.5-5.1); Sodium 137 mmol/L (136-145)
[2023-03-24] MEDS: dextrose 5%-lactated ringers 1,000 ML 125 ML IV (05:36)
--- NOTE | 2023-03-24 07:19 | PM.OBGYPN ---
CASING MIXER Subjective Subjective: Interval history: This is a 32-year-old G3, P2 that is status post repeat low-transverse day 1. Patient has had poor urine output overnight. The patient received a liter fluid bolus and has drink 64 ounces of water without significant urine output. Patient denies any other symptoms. Patient denies any shortness of breath. No increased swelling. Pain has been well-controlled. The patient has ambulated without issues. Labor: Amniotic Membrane Status: Intact Monitor Mode: External Contraction Pattern: Absent Status: Category I Post /CS: [place] baby status: doing well feeding status: breast and bottle feeding Vitals/I&O/Wt Last Vital Signs Temp 97.8 F 03/23/23 20:30 Pulse 81 03/24/23 06:39 Resp 16 03/23/23 20:30 BP 110/74 03/24/23 06:39 Pulse Ox 95 03/23/23 21:03 O2 Del Method Room Air 03/23/23 15:40 03/23/23 03/24/23 03/24/23 22:59 06:59 14:59 Intake Total 1700 / 1700 1000 / 2700 Output Total 1310 / 1310 85 / 1395 Balance 390 / 390 915 / 1305 Weight last 48 hrs Weight 140.614 kg Physical Exam Const: COMMON NORMALS: no acute distress, patient oriented x3, healthy appearing and alert HENMT: COMMON NORMALS: normocephalic and moist oral mucous membranes HEAD & SCALP: normocephalic Eye: COMMON NORMALS: Equal, round and reactive pupils present, EOMs intact bilaterally and conjunctivae normal CONJUNCTIVA: Yes conjunctivae normal PUPIL: Yes Equal, round and reactive pupils present Neck/C-Spine: COMMON NORMALS: full ROM, supple and no JVD Resp: COMMON NORMALS: normal respiratory effort Cardio: COMMON NORMALS: no JVD, regular rate and regular rhythm RATE: regular rate RHYTHM: regular rhythm GI: COMMON NORMALS: Normal to inspection, nondistended, normoactive bowel sounds present and Soft to palpation PALPATION: Yes Soft to palpation OTHER: Incision covered by pressure bandage. Extremity: COMMON NORMALS: no clubbing, cyanosis or edema Neuro: COMMON NORMALS: patient oriented x3, moves all extremities and no focal motor deficits SENSORIUM/ORIENTATION: Yes alert Psych: COMMON NORMALS: mental status grossly normal Urinary Catheter Management: Paul: Cath Placed During This Visit: yes Urinary Catheter Date of Insertion: 03/23/23 Urinary Catheter Time of Insertion: 14:00 Data 03/24/23 02:45 03/24/23 02:45 A&P Assessment and plan (1) Preeclampsia: Blood pressure has returned to normal. No persistent evidence of severe features at this time. (2) Status post : Continue with routine care. (3) Urine output low: Urine output is low. No evidence of fluid overload at this time. Continue with IV fluids and oral hydration. Will provide a 10 mg IV push of Lasix. Continue with strict I's and O's. Attestations Medical Necessity Statement*: Continue with inpatient care for 48 hours post . Coding Level of Care Code Acute Code for [facility] Fwd Diagnoses Preeclampsia O14.90 Status post Z98.891 Urine output low R34
[2023-03-24] MEDS: FUROsemide 10 mg/mL SDV 2mL IVP (08:25)
[2023-03-24] MEDS: ferrous sulfate EC 325 mg Tablet PO (10:14)
[2023-03-24] MEDS: prenatal vitamin Capsule 1 CAP PO (10:15)
[2023-03-24] MEDS: docusate sodium 100 mg Capsule PO ×2 (10:15→20:27)
[2023-03-24] MEDS: ibuprofen 800 mg tablet PO (20:28)
[2023-03-25 04:16] VITALS: BP 143/73; PULSE 104
[2023-03-25] MEDS: ferrous sulfate EC 325 mg Tablet PO (08:16)
[2023-03-25] MEDS: ibuprofen 800 mg tablet PO ×2 (08:16→14:45)
[2023-03-25] MEDS: prenatal vitamin Capsule 1 CAP PO (08:16)
[2023-03-25] MEDS: docusate sodium 100 mg Capsule PO ×2 (08:16)
[2023-03-25 08:58] VITALS: BP 153/96; PULSE 112
--- NOTE | 2023-03-25 10:58 | PM.OBGYDC ---
Discharge Providers PRISON KEEPER Date of Admission: 03/23/23 11:05 Date of Discharge: 03/25/23 Attending Provider at Admission: Werner Corona MD Attending Provider at Discharge: Werner Corona MD Primary Care Provider: Werner Corona MD Diagnoses at Discharge Discharge Diagnosis (1) Preeclampsia: Status: Acute (2) Status post : Status: Acute (3) Urine output low: Details from hospital stay: Resolved Status: Acute Reason for Visit Reason for Visit: elevated bp Brief History: This is a 32-year-old G3, P2 that presented with elevated blood pressure. Ultimately the patient was diagnosed with preeclampsia and oligohydramnios. Based on history the patient likely also had prolonged rupture of membranes. Patient was scheduled for an immediate . Hospital Course Hospital Course The patient underwent repeat low-transverse on March 23, 2023. Patient had no complications during surgery. care has been unremarkable except for initial poor urine output. Did improve with IV fluids and Lasix. She is currently ambulating without any issues and urinating with no problems. Pain Is well-controlled on oral medications. Information Peripartum Data: Delivery Method: Physical Exam Const: COMMON NORMALS: no acute distress, patient oriented x3, healthy appearing and alert HENMT: COMMON NORMALS: normocephalic and moist oral mucous membranes HEAD & SCALP: normocephalic Eye: COMMON NORMALS: Equal, round and reactive pupils present, EOMs intact bilaterally and conjunctivae normal CONJUNCTIVA: Yes conjunctivae normal PUPIL: Yes Equal, round and reactive pupils present Neck/C-Spine: COMMON NORMALS: full ROM, supple and no JVD Resp: COMMON NORMALS: normal respiratory effort Cardio: COMMON NORMALS: no JVD, regular rate and regular rhythm RATE: regular rate RHYTHM: regular rhythm GI: COMMON NORMALS: Normal to inspection, nondistended, normoactive bowel sounds present and Soft to palpation PALPATION: Yes Soft to palpation OTHER: Incision CDI. Extremity: COMMON NORMALS: no clubbing, cyanosis or edema Neuro: COMMON NORMALS: patient oriented x3, moves all extremities and no focal motor deficits SENSORIUM/ORIENTATION: Yes alert Psych: COMMON NORMALS: mental status grossly normal Urinary Catheter Management: Paul: Cath Placed During This Visit: yes, but has since been removed by the nurse Reason for Continuing Indwelling Catheter: Perioperative Use in Selected Surgeries Urinary Catheter Date of Insertion: 03/23/23 Urinary Catheter Time of Insertion: 14:00 Date Urinary Catheter Removed: 03/24/23 Time Urinary Catheter Discontinued: 11:20 Discharge Data Studies Completed and Pending Completed Studies During Hospitalization Category Date Time Status US OB BPP wo NST 81982 Stat Ultrasound 03/23/23 09:23 Completed Radiology Impressions Obstetrics US/Biophysical Profile 03/23/23 09:23 IMPRESSION: Biophysical profile measures 6/8 with 0 points assigned for breathing. Oligohydramnios. ADDENDUM: 03/23/23 1112 THIS REPORT CONTAINS FINDINGS THAT MAY BE CRITICAL TO PATIENT CARE. The findings were verbally communicated via telephone conference with Werner Corona at 11:10 AM WIRER HELPER on 03/23/2023. The findings were acknowledged and understood. Laboratory Results WBC 12.57 10^3/uL (3.29-11.43) H 03/24/23 02:45 RBC 3.90 10^6/uL (3.85-5.65) 03/24/23 02:45 Hgb 10.60 g/dL (11.27-16.99) L 03/24/23 02:45 Hct 32.5 % (36-47) L 03/24/23 02:45 MCV 83.3 fl (85-98) L 03/24/23 02:45 MCH 27.2 pg (27-33) 03/24/23 02:45 MCHC 32.6 g/dL (30-55) 03/24/23 02:45 RDW 13.9 % (12.1-15.1) 03/24/23 02:45 Plt Count 188 10^3/cmm (157-399) 03/24/23 02:45 MPV 10.9 fL (7.4-10.4) H 03/24/23 02:45 Neut % (Auto) 75.5 % 03/23/23 09:35 Lymph % (Auto) 17.3 % 03/23/23 09:35 Andrew % (Auto) 5.6 % 03/23/23 09:35 Eos % (Auto) 1.0 % 03/23/23 09:35 Baso % (Auto) 0.2 % 03/23/23 09:35 Neut # (Auto) 8.18 10^3/uL (1.8-7.7) H 03/23/23 09:35 Lymph # (Auto) 1.9 10^3/uL (0.8-4.8) 03/23/23 09:35 Andrew # (Auto) 0.6 10^3/uL (0.2-0.9) 03/23/23 09:35 Eos # (Auto) 0.1 10^3/uL (0.0-0.8) 03/23/23 09:35 Baso # (Auto) 0.0 10^3/uL (0.0-0.1) 03/23/23 09:35 Nucleated RBC % (auto) 0 % 03/23/23 09:35 Nucleated RBCs # 0.0 /100WBC 03/23/23 09:35 Sodium 137 mmol/L (136-145) 03/24/23 02:45 Potassium 4.2 mmol/L (3.5-5.1) 03/24/23 02:45 Chloride 106 mmol/L (98-107) 03/24/23 02:45 Carbon Dioxide 23 mmol/L (22-29) 03/24/23 02:45 Anion Gap 12.2 (5-19) 03/24/23 02:45 BUN 11 mg/dL (6-20) 03/24/23 02:45 Creatinine 0.7 mg/dL (0.5-0.9) 03/24/23 02:45 GFR Calculation 117.3 mL/min (90-130) 03/24/23 02:45 Glucose 104 mg/dL (65-115) 03/24/23 02:45 Calculated Osmolality 284 mOsm/kg (285-295) L 03/24/23 02:45 Uric Acid 4.9 mg/dL (2.4-5.7) 03/23/23 09:35 Calcium 8.9 mg/dL (8.5-10.5) 03/24/23 02:45 Total Bilirubin 0.2 mg/dL (0.15-1.2) 03/23/23 09:35 AST 31 U/L (0-32) 03/23/23 09:35 ALT 27 U/L (0-33) 03/23/23 09:35 Alkaline Phosphatase 134 U/L (35-105) H 03/23/23 09:35 Total Protein 6.5 g/dL (6.6-8.7) L 03/23/23 09:35 Albumin 3.1 g/dL (3.5-5.2) L 03/23/23 09:35 Globulin 3.4 g/dL (1.3-4.6) 03/23/23 09:35 Insulin-like GF I Positive 03/23/23 10:30 Urine Color Yellow (Yellow) 03/23/23 09:25 Urine Appearance Clear (CLEAR) 03/23/23 09:25 Urine pH 7 (5-7) 03/23/23 09:25 Ur Specific [place] 1.005 (1.005-1.030) 03/23/23 09:25 Urine Protein Neg (Negative) 03/23/23 09:25 Urine Glucose (UA) Norm (Normal) 03/23/23 09:25 Urine Ketones Negative (Negative) 03/23/23 09:25 Urine Blood 2+ (Negative) H 03/23/23 09:25 Urine Nitrate Negative (Negative) 03/23/23 09:25 Urine Bilirubin Neg (Negative) 03/23/23 09:25 Urine Urobilinogen Norm mg/dL (Negative) 03/23/23 09:25 Ur Leukocyte Esterase 2+ (Negative) H 03/23/23 09:25 Urine RBC 5-10 /hpf (0-2) H 03/23/23 09:25 Urine WBC 25-40 /hpf (0-5) H 03/23/23 09:25 Ur Squamous Epith Cells 0-4 /hpf (0-5) H 03/23/23 09:25 Amorphous Sediment Not Reportable 03/23/23 09:25 Urine Bacteria Trace /hpf (NONE) 03/23/23 09:25 U Random Total Protein 33 mg/dL 03/23/23 09:25 Urine Creatinine 107 mg/dL (28-217) 03/23/23 09:25 Protein/Creatinin Ratio 0.31 mg/mg CR 03/23/23 09:25 Blood Type A Positive 03/23/23 09:35 Rho(D) Type Rh positive 03/23/23 09:35 Antibody Screen Negative 03/23/23 09:35 Vitals Last Vital Signs Temp 98.3 F 03/24/23 10:35 Pulse 112 H 03/25/23 08:58 Resp 16 03/24/23 10:35 BP 153/96 03/25/23 08:58 Pulse Ox 95 03/23/23 21:03 O2 Del Method Room Air 03/24/23 10:35 Results Labs OB ([facility]): Obstetrics US 11/20/22 Obstetrics US/Biophysical Profile 03/23/23 Blood Type A Positive 03/23/23 Antibody Screen Negative 03/23/23 Hct 32.5 % (36-47) L 03/24/23 Hgb 10.60 g/dL (11.27-16.99) L 03/24/23 Rho(D) Type Rh positive 03/23/23 Plt Count 188 10^3/cmm (157-399) 03/24/23 TSH 1.58 uIU/mL (0.27-4.20) 10/03/22 Uric Acid 4.9 mg/dL (2.4-5.7) 03/23/23 Ser , Semi-Qnt 12925.00 mIU/mL 10/03/22 HCG, Qual Positive (Negative) H 10/03/22 Micro Urine Specimen 03/23/23 Discharge Plan Discharge Patient Disposition: Home Condition: Stable Prescriptions: Discontinued metoclopramide HCl [Reglan] 10 mg tablet 10 mg PO Q8H PRN (Reason: nausea and vomiting) Qty: 15 0RF Discharge Orders: Discharge Order (Routine); Ordered 03/25/23 Ordered By: Werner Corona Referrals: Werner Corona MD [Primary Care Provider] - 03/30/23 10:30 am Discharge Diet: Usual diet Discharge Activity: Limit activity as instructed Patient Instructions: Depression (DC), Bleeding (DC), Preeclampsia and Eclampsia After Delivery (GEN), (DC), Hemorrhage (DC), OB Discharge Report, OB Anesthesia Instructions, OB Food/Drug Interaction Guide, Opioid Safety, OB Home Care, OB Proud Parent Packet Discharge Attestations PRISON KEEPER Time Spent in Discharge Care*: less than 30 min Coding Level of Care Code Acute Code for Chg Fwd Diagnoses Preeclampsia O14.90 Status post Z98.891 Urine output low R34
[2023-03-25 14:48] VITALS: BP 146/98; PULSE 87; TEMP 36.9
[2023-03-25 15:42] VITALS: BP 146/98; PULSE 87; RESP 17; TEMP 36.9
== END 2023-03-25 15:42 | disposition home or self-care (01) | DRG 788 ==
LOC: OPOB 12:26 → OBGYN 12:30
PROVIDERS: Admitting Provider Family Medicine; PCP Family Medicine; Visit Provider Family Medicine
PROC: 10D00Z1 Extraction of Products of Conception, Low, Open Approach (ICD-10-PCS; CPT 59514; principal; 2023-03-23 12:30)
DX: O14.94 Unspecified pre-eclampsia, complicating childbirth (principal); O42.013 Preterm premature rupture of membranes, onset of labor within 24 hours of rupture, third trimester; Z37.0 Single live birth; Z3A.35 35 weeks gestation of pregnancy; R34 Anuria and oliguria
CPT/HCPCS: 36415; 51702; 59025; 59409; 76819; 80048; 80053; 81001; 82570; 84112; 84156; 84550; 85025; 85027; 86850; 86900; 87086; 96374; 96376; 99211; J0690; J1885; J1940; J2274; J2371; J2405; J2765; J3010; J3490; J7040; J7120; J7121